=== PATIENT | female | born 2000 | race Caucasian/White ===

== ENCOUNTER 2024-06-04 23:06 | Emergency (ER) | payer SELFPAY ==
[~2024-06-04] VITALS: Ht 12.7 cm; Wt 61.2 kg
[2024-06-05] MEDS ORDERED: Ketorolac Tromethamine 30 MG/ML VIAL IM ONE (01:35)
[2024-06-05] MEDS ORDERED: NAPROXEN250 MG PO (01:37)
== END 2024-06-05 01:58 | disposition home or self-care (01) ==
LOC: ED 23:06
DX: S90.01XA Contusion of right ankle, initial encounter (principal); S90.31XA Contusion of right foot, initial encounter; W19.XXXA Unspecified fall, initial encounter; Y93.89 Activity, other specified; Y92.009 Unspecified place in unspecified non-institutional (private) residence as the place of occurrence of the external cause; Y99.8 Other external cause status

== ENCOUNTER → 2025-08-09 | Outpatient (CLI) | payer OTHER, MEDICAID ==
[~2025-08-09] MED LIST: NAPROXEN250 MG PO
== END ==
LOC: RAD 10:34
PROVIDERS: ATTEND Nurse Practitioner Family
DX: M25.511 Pain in right shoulder (principal); M41.85 Other forms of scoliosis, thoracolumbar region